=== PATIENT | female | born 1945 | race Caucasian/White ===

== ENCOUNTER 2016-12-02 13:26 | Emergency (ER) | payer OTHER ==
--- NOTE | 2016-12-02 13:29 | EDPHY ---
H & P HPI/ROS: HPI CHIEF COMPLAINT: Sinus pain, nasal congestion, maxillary sinus pain, postnasal drip HISTORY OF PRESENT ILLNESS: This patient very pleasant 71-year-old female she does have significant past medical history for hypertension additionally angioedema for calcium channel blockers, remote history of sinus disease, presents to the emergency room with 10 days of progressively worsening sinus congestion and anterior maxillary sinus pain. No fever. No productive cough. Does have postnasal drip. She has been taking her Singulair at night, Beatriz-D , and nasal spray without relief. She tried to get in with her primary care doctor but was unsuccessful so she decided come to the emergency room for evaluation. Upon arrival to the emergency room she appears well nontoxic no acute distress resting comfortably. Vital signs are stable. She has anterior maxillary sinus congestion and pain tender palpation on exam. Past Medical History: Hypertension, EGD with from calcium channel blockers Past Surgical History: No recent surgery Social History: Denies daily use of drugs alcohol tobacco. Family History: Noncontributory ROS REVIEW OF SYSTEMS: A comprehensive 10 point review of systems is otherwise negative aside from elements mentioned in the history of present illness. Exam Constitutional appears well nontoxic triage nursing summary reviewed, vital signs reviewed, awake/alert. Eyes normal conjunctivae and sclera, EOMI, PERRLA. HENT TMs show slight inflammation bilaterally there is scar tissue present however they are slightly erythematous, no significant bulge, posterior pharynx erythematous but no exudate. Tender palpation over the maxillary sinuses. No signs of Pineda's on exam. Uvula midline. moist mucus membranes, no epistaxis , neck supple/ no meningismus, no raccoon eyes. Respiratory clear to auscultation bilaterally, normal breath sounds, no respiratory distress, no wheezing. Cardiovascular rate normal, regular rhythm, no murmur, no edema, distal pulses normal. Gastrointestinal soft, non-tender, no rebound, no guarding, normal bowel sounds, no distension, no pulsatile mass. Genitourinary no CVA tenderness. Musculoskeletal no midline vertebral tenderness, full range of motion, no calf swelling, no tenderness of extremities, no meningismus, good pulses, neurovascularly intact. Skin pink, warm, & dry, no rash, skin atraumatic. Neurologic awake, alert and oriented x 3, AAOx3, moves all 4 extremities equally, motor intact, sensory intact, CN II-XII intact, normal cerebellar, normal vision, normal speech. Psychiatric normal mood/affect. Heme/Lymph/Immune no lymphadenopathy. Differential Diagnosis: Includes but is not limited to in a particular order, acute sinusitis, upper respiratory tract infection, viral syndrome Medical Decision Making: Plan for this patient started on Augmentin, ENT referral, additionally follow up with primary care doctor, and 4 days of prednisone. Return emergency room if worsening symptoms she understands. Follow up with her primary care doctor she has a follow-up appointment on Wednesday. Source: Patient - Medical/Surgical History Hx Asthma: No Hx Chronic Respiratory Disease: No Hx Diabetes: No Hx Cardiac Disease: No Hx Renal Disease: No Hx Cirrhosis: No Hx Alcoholism: No Hx HIV/AIDS: No Hx Splenectomy or Spleen Trauma: No Other PMH: HYSTERECTOMY,BILAT ACL, HBP,GERD,HRT,eustachian tube dysfunction - Social History Smoking Status: Never smoked Allergies/Adverse Reactions: No Known Allergies Allergy (Verified 12/02/16 13:30) Home Medications: Medication Instructions Recorded Aldactone 07/21/14 Nexium 07/21/14 PREMARIN 07/21/14 Singulair 07/21/14 Synthroid 07/21/14 Beatriz D 12/02/16 Amoxicillin/Clavulanate Pot 875 mg PO BID #14 tab 12/02/16 [Augmentin 875 MG TAB (*)] Bystolic 12/02/16 predniSONE 50 mg PO DAILY #5 tablet 12/02/16 Departure - Departure Disposition: Home, Routine, Self-Care Clinical Impression: Acute sinusitis Qualifiers: Sinusitis location: maxillary Recurrence: non-recurrent Qualified Code(s): J01.00 - Acute maxillary sinusitis, unspecified Condition: Good Instructions: Sinusitis (ED) Additional Instructions: 1. Make sure to drink lots of fluids. 2. Continue your Singulair and Beatriz D. 3. Continue your nasal spray. 4. Augmentin as prescribed take with food or yogurt. Can cause diarrhea. 5. Prednisone for 4 days. This should help reduce her inflammation. 5. Return emergency room if worsening symptoms questions or concerns Referrals: Pippa Roger MD [Primary Care Provider] - As per Instructions Asim Nascimento MD [Medical Doctor] - As per Instructions Prescriptions: Amoxicillin/Clavulanate Pot [Augmentin 875 MG TAB (*)] 875 mg PO BID #14 tab predniSONE 50 mg PO DAILY #5 tablet
[2016-12-02 13:42] VITALS: BP 149/83; PULSE 76; RESP 16; TEMP 97.7; O2SAT 92
== END 2016-12-02 13:51 | disposition home or self-care (01) ==
LOC: CED 13:26
DX: J01.00 Acute maxillary sinusitis, unspecified (principal); I10 Essential (primary) hypertension